=== PATIENT | female | born 1940 | race Caucasian/White ===

== ENCOUNTER → 2016-09-14 | Outpatient (CLI) | payer MEDICARE, BC ==
[~2016-09-14] MED LIST: AMAR4TAB PO; INDA1.25 PO; LISI-591 PO; PROT40TA PO; ROSU40 PO; SUCR1S PO; XALA0.00 EACH EYE
[2016-09-14 09:16] LABS: AUTOMATED NEUTROPHIL # 5.7 TH/MM3 (1.8-7.7); BASOPHIL # 0.1 TH/MM3 (0-0.2); BASOPHIL % 1.1 % (0.0-2.0); EOSINOPHIL # 0.2 TH/MM3 (0-0.4); EOSINOPHIL % 2.3 % (0.0-4.0); HEMATOCRIT 33.6 % (35.0-46.0); LYMPH % 14.6 % (9.0-44.0); LYMPHOCYTE # 1.1 TH/MM3 (1.0-4.8); MEAN CORPUSCULAR HEMOGLOBIN 24.9 PG (27.0-34.0); MEAN CORPUSCULAR HGB CONC 31.6 % (32.0-36.0); MONO % 7.3 % (0.0-8.0); NEUT % 74.7 % (16.0-70.0); PLATELET COUNT 252 TH/MM3 (150-450); RED BLOOD COUNT 4.25 MIL/MM3 (4.00-5.30); WHITE BLOOD COUNT 7.7 TH/MM3 (4.0-11.0)
[2016-09-14 09:23] LABS: HEMO FLAGS AUTO DIFF
[2016-09-14 09:51] LABS: ALKALINE PHOSPHATASE 84 U/L (45-117); ALT (GPT) 22 U/L (10-53); ANION GAP 6 MEQ/L (5-15); AST (GOT) 21 U/L (15-37); BICARBONATE 32.8 MEQ/L (21.0-32.0); BLOOD UREA NITROGEN 28 MG/DL (7-18); CHLORIDE 102 MEQ/L (98-107); GLOMERULAR FILTRATION RATE 87 ML/MIN (>89); GLUCOSE,FASTING 85 MG/DL (74-99); HDL CHOLESTEROL 46.5 MG/DL (40.0-60.0); LDL CHOLESTEROL 49 MG/DL (0-99); POTASSIUM 3.5 MEQ/L (3.5-5.1); SODIUM (NA) 141 MEQ/L (136-145); TOTAL BILIRUBIN ADULT 0.2 MG/DL (0.2-1.0)
[2016-09-14 10:09] LABS: KERATOCYTES OCC (NORMAL); OVALOCYTES 1+ (NORMAL)
[2016-09-14 10:10] LABS: PLATELET ESTIMATE SMEAR NORMAL (NORMAL); PLATELET MORPHOLOGY NORMAL (NORMAL); SCAN/DIFF AUTO DIFF CONFIRMED
[2016-09-14 16:12] LABS: HEMOGLOBIN A1a 1.6 %; HEMOGLOBIN A1b 1.7 %; HEMOGLOBIN Ao 83.7 %; HEMOGLOBIN LA1C 2.2 %; HEMOGLOBIN P3 6.1 %
== END ==
LOC: PLAB 08:09
PROVIDERS: ATTEND Family Medicine
DX: D53.8 Other specified nutritional anemias (principal); I10 Essential (primary) hypertension; E11.9 Type 2 diabetes mellitus without complications; E78.2 Mixed hyperlipidemia
CPT/HCPCS: 36415; 80053; 80061; 83036; 85025

== ENCOUNTER → 2016-11-06 | Outpatient (CLI) | payer MEDICARE, BC ==
[2016-11-06 13:49] LABS: AUTOMATED NEUTROPHIL # 7.2 TH/MM3 (1.8-7.7); BASOPHIL % 0.5 % (0.0-2.0); EOSINOPHIL # 0.2 TH/MM3 (0-0.4); EOSINOPHIL % 1.8 % (0.0-4.0); HEMATOCRIT 34.9 % (35.0-46.0); HEMO FLAGS DIFF FINAL; LYMPH % 12.7 % (9.0-44.0); LYMPHOCYTE # 1.2 TH/MM3 (1.0-4.8); MEAN CELL VOLUME 80.5 FL (80.0-100.0); MEAN CORPUSCULAR HEMOGLOBIN 25.7 PG (27.0-34.0); MONO % 6.8 % (0.0-8.0); NEUT % 78.2 % (16.0-70.0); PLATELET COUNT 232 TH/MM3 (150-450); RED BLOOD COUNT 4.34 MIL/MM3 (4.00-5.30); RED CELL DISTRIBUTION WIDTH 20.2 % (11.6-17.2); WHITE BLOOD COUNT 9.3 TH/MM3 (4.0-11.0)
[2016-11-06 14:15] LABS: TRANSFERRIN IRON PROFILE 286 MG/DL (200-360)
== END ==
LOC: PLAB 07:45
PROVIDERS: ATTEND Family Medicine
DX: D53.8 Other specified nutritional anemias (principal)
CPT/HCPCS: 36415; 83540; 83550; 85025

== ENCOUNTER → 2017-03-25 | Outpatient (CLI) | payer MEDICARE, BC ==
[2017-03-25 13:43] LABS: AUTOMATED NEUTROPHIL # 6.6 TH/MM3 (1.8-7.7); BASOPHIL # 0.1 TH/MM3 (0-0.2); BASOPHIL % 1.1 % (0.0-2.0); EOSINOPHIL # 0.1 TH/MM3 (0-0.4); EOSINOPHIL % 1.5 % (0.0-4.0); HEMATOCRIT 32.6 % (35.0-46.0); HEMO FLAGS DIFF FINAL; LYMPH % 11.9 % (9.0-44.0); MEAN CELL VOLUME 79.5 FL (80.0-100.0); MEAN CORPUSCULAR HEMOGLOBIN 24.9 PG (27.0-34.0); MEAN CORPUSCULAR HGB CONC 31.3 % (32.0-36.0); MONO % 6.9 % (0.0-8.0); NEUT % 78.6 % (16.0-70.0); PLATELET COUNT 231 TH/MM3 (150-450); RED CELL DISTRIBUTION WIDTH 18.5 % (11.6-17.2); WHITE BLOOD COUNT 8.4 TH/MM3 (4.0-11.0)
[2017-03-25 14:20] LABS: ANION GAP 6 MEQ/L (5-15); AST (GOT) 19 U/L (15-37); BLOOD UREA NITROGEN 28 MG/DL (7-18); CHLORIDE 105 MEQ/L (98-107); GLOMERULAR FILTRATION RATE 78 ML/MIN (>89); POTASSIUM 3.9 MEQ/L (3.5-5.1); SODIUM (NA) 140 MEQ/L (136-145)
[2017-03-25 14:21] LABS: GLUCOSE,FASTING 103 MG/DL (74-99)
[2017-03-25 14:29] LABS: ALKALINE PHOSPHATASE 87 U/L (45-117); ALT (GPT) 21 U/L (10-53); HDL CHOLESTEROL 55.7 MG/DL (40.0-60.0); LDL CHOLESTEROL 56 MG/DL (0-99); TOTAL BILIRUBIN ADULT 0.3 MG/DL (0.2-1.0)
[2017-03-25 17:05] LABS: HEMOGLOBIN A1a 1.5 %; HEMOGLOBIN A1b 1.7 %; HEMOGLOBIN Ao 84.1 %; HEMOGLOBIN LA1C 2.2 %; HEMOGLOBIN P3 5.9 %
== END ==
LOC: PLAB 08:17
PROVIDERS: ATTEND Family Medicine
DX: E78.2 Mixed hyperlipidemia (principal); I10 Essential (primary) hypertension; D53.8 Other specified nutritional anemias; E11.9 Type 2 diabetes mellitus without complications
CPT/HCPCS: 36415; 80053; 80061; 83036; 85025

== ENCOUNTER → 2017-09-26 | Outpatient (CLI) | payer MEDICARE, BC ==
[2017-09-26 13:19] LABS: AUTOMATED NEUTROPHIL # 6.5 TH/MM3 (1.8-7.7); BASOPHIL # 0.1 TH/MM3 (0-0.2); BASOPHIL % 0.8 % (0.0-2.0); EOSINOPHIL # 0.1 TH/MM3 (0-0.4); EOSINOPHIL % 1.5 % (0.0-4.0); HEMATOCRIT 31.7 % (35.0-46.0); HEMOGLOBIN 10.2 GM/DL (11.6-15.3); LYMPH % 11.9 % (9.0-44.0); MEAN CORPUSCULAR HEMOGLOBIN 24.2 PG (27.0-34.0); MEAN CORPUSCULAR HGB CONC 32.2 % (32.0-36.0); MEAN PLATELET VOLUME 8.8 FL (7.0-11.0); MONO % 5.5 % (0.0-8.0); MONOCYTE # 0.5 TH/MM3 (0-0.9); NEUT % 80.3 % (16.0-70.0); PLATELET COUNT 290 TH/MM3 (150-450); RED BLOOD COUNT 4.23 MIL/MM3 (4.00-5.30); RED CELL DISTRIBUTION WIDTH 18.7 % (11.6-17.2); WHITE BLOOD COUNT 8.1 TH/MM3 (4.0-11.0)
[2017-09-26 13:29] LABS: ALBUMIN 3.3 GM/DL (3.4-5.0); BICARBONATE 29.6 MEQ/L (21.0-32.0); CALCIUM 9.1 MG/DL (8.5-10.1); CHLORIDE 105 MEQ/L (98-107); GLUCOSE,FASTING 106 MG/DL (74-99); SODIUM (NA) 142 MEQ/L (136-145)
[2017-09-26 13:39] LABS: ALKALINE PHOSPHATASE 88 U/L (45-117); ALT (GPT) 23 U/L (10-53); AST (GOT) 17 U/L (15-37); BLOOD UREA NITROGEN 27 MG/DL (7-18); CHOLESTEROL 117 MG/DL (120-200); CHOLESTEROL/ HDL RATIO 2.29 RATIO; CREATININE 0.88 MG/DL (0.50-1.00); GLOMERULAR FILTRATION RATE 62 ML/MIN (>89); LDL CHOLESTEROL 50 MG/DL (0-99); TOTAL BILIRUBIN ADULT 0.3 MG/DL (0.2-1.0); TRIGLYCERIDES 80 MG/DL (42-150)
[2017-09-26 19:00] LABS: HEMOGLOBIN A1C 6.4 % (4.3-6.0)
== END ==
LOC: PLAB 08:46
PROVIDERS: ATTEND Family Medicine
DX: E11.9 Type 2 diabetes mellitus without complications (principal); E78.2 Mixed hyperlipidemia; D53.8 Other specified nutritional anemias; I10 Essential (primary) hypertension
CPT/HCPCS: 36415; 80053; 80061; 83036; 85025

== ENCOUNTER 2017-10-21 05:47 | Emergency (ER) | payer MEDICARE, BC ==
[~2017-10-21] VITALS: Ht 162.6 cm; Wt 66.0 kg
--- NOTE | 2017-10-21 05:57 | PD ---
HPI Chief Complaint: Pains in the arms and leg Time Seen by Provider: 05:50 Travel History International Travel<30 days: No Contact w/Intl Traveler<30days: No History of Present Illness HPI 77-year-old female patient with history of high cholesterol, hypertension, CAD status post stenting, presents to the ER today because she states that she started having pain in both arms and left leg starting on its own. She states it hurts with movements. She denies any chest pains, trouble breathing, fevers , or other symptoms. She denies any previous history of this issue. She denies any new medications. Pain seems to be more focused on the joints especially in the left knee. Pain is rated currently a 10 out of 10. Modifying Factors: Worse with movements Associated Signs & Symptoms: Pain in the arms and left knee, joints Risk Factors: None PFSH Past Medical History Anemia: Yes Arthritis: Yes Blood Disorders: No Anxiety: No Depression: No Heart Rhythm Problems: Yes Cancer: No Cardiac Catheterization: Yes (STENTS PLACED) Cardiovascular Problems: Yes (stent placement) High Cholesterol: Yes Chemotherapy: No Coronary Artery Disease: Yes Diabetes: Yes Diminished Hearing: No Endocrine: Yes Gastrointestinal Disorders: Yes GERD: No Glaucoma: Yes Genitourinary: No Hepatitis: No Hiatal Hernia: No Hypertension: Yes Immune Disorder: No Kidney Stones: Yes Musculoskeletal: Yes Neurologic: No Psychiatric: No Reproductive: No Respiratory: No Radiation Therapy: No Sickle Cell Disease: No Thyroid Disease: No Ulcer: Yes (GASTRIC) Menopausal: Yes Past Surgical History Abdominal Surgery: Yes (gallbladder removed,bleeding ulcer repaired; HERNIA REPAIR) AICD: No Arteriovenous Shunt: No Cardiac Surgery: Yes (CARDIAC STENTS PLACED) Cholecystectomy: Yes (10/13/2007) Coronary Stent: Yes (2 stents) Ear Surgery: No Endocrine Surgery: No Eye Surgery: No Genitourinary Surgery: No Gynecologic Surgery: No Insulin Pump: No Joint Replacement: No Oral Surgery: No Pacemaker: No Thoracic Surgery: No Other Surgery: Yes Social History Alcohol Use: No Tobacco Use: Yes (1/2 pACK) Substance Use: No Allergies-Medications (Allergen,Severity, Reaction): Coded Allergies: No Known Allergies (Verified , 04/17/15) Reported Meds & Prescriptions Reported Meds & Active Scripts Active Protonix (Pantoprazole Sodium) 40 Mg Tab 40 Mg PO DAILY Reported Losartan (Losartan Potassium) 50 Mg Tab 50 Mg PO DAILY Carafate 1 Gm/10 Ml Udc (Sucralfate) 1 Gm/10 Ml Susp 1 Gm PO BIDAC Take with water on an empty stomach. To reduce the potential of adversely affecting the absorption of other drugs, take other drugs 2 hours prior to Sucralfate. Xalatan (Latanoprost) 0.005 % Elisa 1 Drop EACH EYE HS Crestor (Rosuvastatin Calcium) 40 Mg Tab 10 Mg PO HS Lozol (Indapamide) 1.25 Mg Tab 2.5 Mg PO DAILY 2 TABS (5MG.) Zestril 20 mg (Lisinopril) 20 Mg Tab 20 Mg PO DAILY Amaryl (Glimepiride) 4 Mg Tab 4 Mg PO DAILY Review of Systems Except as stated in HPI: all other systems reviewed are Neg Physical Exam Narrative GENERAL: Well-developed elderly female patient currently in mild distress. Awake and oriented 3. SKIN: Focused skin assessment warm/dry. HEAD: Atraumatic. Normocephalic. EYES: Pupils equal and round. No scleral icterus. No injection or drainage. ENT: No nasal bleeding or discharge. Mucous membranes pink and moist. NECK: Trachea midline. No JVD. CARDIOVASCULAR: Regular rate and rhythm. No murmur appreciated. RESPIRATORY: No accessory muscle use. Clear to auscultation. Breath sounds equal bilaterally. GASTROINTESTINAL: Abdomen soft, non-tender, nondistended. Hepatic and splenic margins not palpable. MUSCULOSKELETAL: No obvious deformities. No clubbing. No cyanosis. No edema. EXTREMITIES: No clubbing, cyanosis, or edema. There is tenderness especially on palpation over the left knee with notable joint effusion. Bilateral arms most tender to palpation around the joint areas including elbow and shoulder. Pulses intact. NEUROLOGICAL: Awake and alert. No obvious cranial nerve deficits. Motor grossly within normal limits. Normal speech. PSYCHIATRIC: Appropriate mood and affect; insight and judgment normal. Data Data Last Documented VS Vital Signs Date Time Temp Pulse Resp B/P (MAP) Pulse Ox O2 Delivery O2 Flow Rate FiO2 10/21/17 07:00 74 16 182/62 (102) 96 Room Air 10/21/17 05:58 99.2 Orders Orders Electrocardiogram (10/21/17 05:51) Complete Blood Count With Diff (10/21/17 05:51) Comprehensive Metabolic Panel (10/21/17 05:51) Creatine Kinase (Cpk) (10/21/17 05:51) Troponin I (10/21/17 05:51) C-Reactive Protein (Crp) (10/21/17 05:51) Westergren Sedimentation Rate (10/21/17 05:51) Chest, Single Ap (10/21/17 05:51) Knee, Complete (4vws) (10/21/17 05:51) Morphine Inj (Morphine Inj) (10/21/17 06:00) Potassium Chlor 20 Meq Premix (Kcl 20 Me (10/21/17 06:45) Influenzae A/B Antigen (10/21/17 06:39) Ketorolac Inj (Toradol Inj) (10/21/17 06:45) Methylprednisolone So Succ Inj (Solumedr (10/21/17 06:45) Potassium Chloride Eff (K-Lyte Cl Eff) (10/21/17 07:15) Ed Discharge Order (10/21/17 07:05) Labs Laboratory Tests Test 10/21/17 06:00 White Blood Count 12.0 TH/MM3 Red Blood Count 4.51 MIL/MM3 Hemoglobin 10.3 GM/DL Hematocrit 33.1 % Mean Corpuscular Volume 73.4 FL Mean Corpuscular Hemoglobin 22.9 PG Mean Corpuscular Hemoglobin Concent 31.2 % Red Cell Distribution Width 16.9 % Platelet Count 255 TH/MM3 Mean Platelet Volume 8.9 FL Neutrophils (%) (Auto) 81.1 % Lymphocytes (%) (Auto) 8.7 % Monocytes (%) (Auto) 6.7 % Eosinophils (%) (Auto) 0.1 % Basophils (%) (Auto) 3.4 % Neutrophils # (Auto) 9.8 TH/MM3 Lymphocytes # (Auto) 1.0 TH/MM3 Monocytes # (Auto) 0.8 TH/MM3 Eosinophils # (Auto) 0.0 TH/MM3 Basophils # (Auto) 0.4 TH/MM3 CBC Comment AUTO DIFF Differential Comment AUTO DIFF CONFIRMED Platelet Estimate NORMAL Platelet Morphology Comment NORMAL Ovalocytes 2+ Erythrocyte Sedimentation Rate 24 mm/hr Blood Urea Nitrogen 26 MG/DL Creatinine 1.00 MG/DL Random Glucose 135 MG/DL Total Protein 7.0 GM/DL Albumin 3.1 GM/DL Calcium Level 8.5 MG/DL Alkaline Phosphatase 92 U/L Aspartate Amino Transf (AST/SGOT) 17 U/L Alanine Aminotransferase (ALT/SGPT) 19 U/L Total Bilirubin 0.6 MG/DL Sodium Level 136 MEQ/L Potassium Level 2.8 MEQ/L Chloride Level 103 MEQ/L Carbon Dioxide Level 25.9 MEQ/L Anion Gap 7 MEQ/L Estimat Glomerular Filtration Rate 53 ML/MIN Total Creatine Kinase 85 U/L Troponin I LESS THAN 0.02 NG/ML C-Reactive Protein 2.63 MG/DL MDM Medical Decision Making Medical Screen Exam Complete: Yes Emergency Medical Condition: Yes Medical Record Reviewed: Yes Interpretation(s) EKG shows NSR, no ST elevation or depression, and no arrhythmias. No significant T-wave inversions. Laboratory Tests Test 10/21/17 06:00 White Blood Count 12.0 TH/MM3 (4.0-11.0) Hemoglobin 10.3 GM/DL (11.6-15.3) Hematocrit 33.1 % (35.0-46.0) Mean Corpuscular Volume 73.4 FL (80.0-100.0) Mean Corpuscular Hemoglobin 22.9 PG (27.0-34.0) Mean Corpuscular Hemoglobin Concent 31.2 % (32.0-36.0) Neutrophils (%) (Auto) 81.1 % (16.0-70.0) Lymphocytes (%) (Auto) 8.7 % (9.0-44.0) Basophils (%) (Auto) 3.4 % (0.0-2.0) Neutrophils # (Auto) 9.8 TH/MM3 (1.8-7.7) Basophils # (Auto) 0.4 TH/MM3 (0-0.2) Ovalocytes 2+ (NORMAL) Blood Urea Nitrogen 26 MG/DL (7-18) Random Glucose 135 MG/DL (74-106) Albumin 3.1 GM/DL (3.4-5.0) Potassium Level 2.8 MEQ/L (3.5-5.1) Estimat Glomerular Filtration Rate 53 ML/MIN (>89) Troponin I LESS THAN 0.02 NG/ML C-Reactive Protein 2.63 MG/DL (0.00-0.30) Differential Diagnosis Gouty arthritis versus osteoarthritis versus rhabdomyolysis versus myalgias Narrative Course Lab work shows hypokalemia and IV potassium was given in the ER. EKG did not show any signs of changes. Chest x-ray was fairly unremarkable. Knee x-ray in the left side did show some underlying arthritis. Her symptoms seems to be very concentrated to the joint area and I suspect that there is an underlying arthritis component to this. Patient was initially given morphine without significant relief, was then given Toradol and Solu-Medrol due to the arthritis component. Her C-reactive protein is mildly elevated but the sed rate is negative for any elevation. There is no significant white blood cell count elevation as well. Pulses are intact. At this point, my plan would be to give her symptomatic relief or pain and steroid course and have her follow-up closely with primary care doctor. Return for any worsening of symptoms as needed. The plan has been discussed with her and she states understanding. Diagnosis Primary Impression: Arthritis Additional Impression: Hypokalemia Med/Other Pt SpecificInfo: Prescription(s) given Scripts Potassium Chloride ER (K-Tab) 20 Meq Tab 20 MEQ PO DAILY for Electrolyte Replacement, #7 TAB 0 Refills Prov: Delonte Avitia MD 10/21/17 Methylprednisolone Dosepak (Medrol Dosepak) 4 Mg Dspk 4 MG PO DIRECTED, #1 DSPK 0 Refills Per Pharmacist direction Prov: Delonte Avitia MD 10/21/17 Diclofenac (Zorvolex) 18 Mg Cap 18 MG PO TID for Pain Management, #15 CAP 0 Refills Prov: Delonte Avitia MD 10/21/17 Disposition: 01 DISCHARGE HOME Condition: Stable Delonte Avitia MD October 21, 2017 05:57
[2017-10-21 05:58] VITALS: BP 146/63; PULSE 83; RESP 18; TEMP 99.2; O2SAT 97
[2017-10-21 06:00] VITALS: BP 154/72; PULSE 74; RESP 16; O2SAT 99
[2017-10-21] MEDS ORDERED: MORPHINE SULFATE 4 MG/ML INJ IV PUSH ONE (06:00)
[2017-10-21] MEDS ORDERED: LOSA50TA PO (06:06)
[2017-10-21 06:15] LABS: AUTOMATED NEUTROPHIL # 9.8 TH/MM3 (1.8-7.7); BASOPHIL # 0.4 TH/MM3 (0-0.2); BASOPHIL % 3.4 % (0.0-2.0); EOSINOPHIL % 0.1 % (0.0-4.0); HEMATOCRIT 33.1 % (35.0-46.0); HEMOGLOBIN 10.3 GM/DL (11.6-15.3); LYMPH % 8.7 % (9.0-44.0); MEAN CELL VOLUME 73.4 FL (80.0-100.0); MEAN CORPUSCULAR HEMOGLOBIN 22.9 PG (27.0-34.0); MEAN CORPUSCULAR HGB CONC 31.2 % (32.0-36.0); MEAN PLATELET VOLUME 8.9 FL (7.0-11.0); MONO % 6.7 % (0.0-8.0); MONOCYTE # 0.8 TH/MM3 (0-0.9); NEUT % 81.1 % (16.0-70.0); PLATELET COUNT 255 TH/MM3 (150-450); RED BLOOD COUNT 4.51 MIL/MM3 (4.00-5.30); RED CELL DISTRIBUTION WIDTH 16.9 % (11.6-17.2)
[2017-10-21 06:30] LABS: CALCIUM 8.5 MG/DL (8.5-10.1); CHLORIDE 103 MEQ/L (98-107); SODIUM (NA) 136 MEQ/L (136-145)
[2017-10-21 06:36] LABS: ALBUMIN 3.1 GM/DL (3.4-5.0); ALKALINE PHOSPHATASE 92 U/L (45-117); ALT (GPT) 19 U/L (10-53); AST (GOT) 17 U/L (15-37); BICARBONATE 25.9 MEQ/L (21.0-32.0); BLOOD UREA NITROGEN 26 MG/DL (7-18); C-REACTIVE PROTEIN 2.63 MG/DL (0.00-0.30); GLOMERULAR FILTRATION RATE 53 ML/MIN (>89); GLUCOSE,RANDOM 135 MG/DL (74-106); TOTAL BILIRUBIN ADULT 0.6 MG/DL (0.2-1.0)
[2017-10-21 06:43] LABS: OVALOCYTES 2+ (NORMAL)
[2017-10-21 06:44] LABS: TROPONIN I LESS THAN 0.02 NG/ML (0.02-0.05)
[2017-10-21] MEDS ORDERED: methylPREDNISolone SOD SUCC 125 MG/2 ML VIAL IV PUSH ONE (06:45)
[2017-10-21] MEDS ORDERED: KETOROLAC TROMETHAMINE 30 MG/ML (IVP) VIAL IV PUSH ONE (06:45)
[2017-10-21] MEDS: POTASSIUM CHLOR 20 MEQ PREMIX 100 ML IV ONE ×2 (06:45→06:56)
--- NOTE | 2017-10-21 06:55 | RADRPT ---
EXAM DATE/TIME: 10/21/2017 06:23 [facility] COMPARISON: CHEST SINGLE AP, April 17, 2015, 21:14. INDICATIONS : Shortness of breath. MEDICAL HISTORY : Hypertension. Diabetes mellitus type II. SURGICAL HISTORY : None. ENCOUNTER: Initial ACUITY: 1 day PAIN SCORE: 0/10 LOCATION: Bilateral chest FINDINGS: A single view of the chest demonstrates the lungs to be symmetrically aerated without evidence of mas s, infiltrate or effusion. Tortuous aorta. Heart size within normal limits. CONCLUSION: 1. No active disease. Patrick Mccloud MD on October 21, 2017 at 6:53 Board Certified Radiologist. This report was verified electronically.
--- NOTE | 2017-10-21 06:57 | RADRPT ---
EXAM DATE/TIME: 10/21/2017 06:23 [facility] COMPARISON: No previous studies available for comparison. INDICATIONS : Left knee pain, no known trauma. MEDICAL HISTORY : None. SURGICAL HISTORY : None. ENCOUNTER: Initial ACUITY: 1 day PAIN SCORE: 8/10 LOCATION: Left knee FINDINGS: Four view examination of the left knee demonstrates moderate to severe osteoarthritis of the medial j oint. Moderate knee joint effusion. Atherosclerotic changes in the popliteal artery. No acute fractur e or subluxation. CONCLUSION: 1. Moderate to severe osteoarthritis of the left knee with moderate size knee joint effusion. Patrick Mccloud MD on October 21, 2017 at 6:54 Board Certified Radiologist. This report was verified electronically.
[2017-10-21 07:00] VITALS: BP 182/62; PULSE 74; RESP 16; O2SAT 96
[2017-10-21] MEDS ORDERED: POTA1TAB4 PO (07:08)
[2017-10-21] MEDS ORDERED: MEDR4PAK PO (07:08)
[2017-10-21] MEDS ORDERED: DICL1CAP3 PO (07:08)
[2017-10-21] MEDS ORDERED: POTASSIUM CHLORIDE 25 MEQ EFFERVESCENT TAB PO ONE (07:15)
--- NOTE | 2017-10-21 19:47 | EKG ---
Date Performed: 10/21/2017 Time Performed: 06:23:45 PTAGE: 77 years EKG: Sinus rhythm BORDERLINE RIGHT AXIS DEVIATION INCOMPLETE RIGHT BUNDLE BRANCH BLOCK ANTEROSEPTAL MYOCARDIAL INFARCT ION-age undetermined ABNORMAL ECG PREVIOUS TRACING : 04/19/2015 07.12 DOCTOR: William Dupree Interpretating Date/Time 10/21/2017 19:47:24
== END 2017-10-21 07:46 | disposition home or self-care (01) ==
LOC: PHED 05:47
DX: M79.602 Pain in left arm (principal); M79.601 Pain in right arm; M17.12 Unilateral primary osteoarthritis, left knee; I45.10 Unspecified right bundle-branch block; I25.2 Old myocardial infarction; R94.31 Abnormal electrocardiogram [ECG] [EKG]; E87.6 Hypokalemia; E78.00 Pure hypercholesterolemia, unspecified; I10 Essential (primary) hypertension
CPT/HCPCS: 71045; 73564; 80053; 82550; 84484; 85025; 85652; 86140; 87804; 93005; 96374; 96375; 99285; J1885; J2270; J2930; J3480